=== PATIENT | female | born 1985 | race Caucasian/White ===

== ENCOUNTER 2019-05-07 10:15 | Emergency (ER) | payer MEDICAID, OTHER ==
[2019-05-07] MEDS ORDERED: NORCO 5/325 MG PO ONE (10:45)
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
[2019-05-07] MEDS ORDERED: NORCO 5/325 MG ONE ×2 (10:50→10:53)
[2019-05-07 11:07] VITALS: BP 136/97; PULSE 49; O2SAT 99
== END 2019-05-07 11:10 | disposition home or self-care (01) ==
LOC: ED 10:15
DX: K04.7 Periapical abscess without sinus (principal)
CPT/HCPCS: 99283; A9270-GY

== ENCOUNTER 2021-12-21 19:58 | Emergency (ER) | payer OTHER ==
[2021-12-21] MEDS ORDERED: Compazine 10 MG/2 ML IV ONE (20:10)
[2021-12-21] MEDS ORDERED: TORAdol 30 mg Injection IV ONE (20:10)
[2021-12-21] MEDS ORDERED: BENADRYL 50 MG/ML IV ONE (20:11)
[2021-12-21] MEDS ORDERED: TORAdol 30 mg Injection ONE (20:29)
[2021-12-21] MEDS ORDERED: BENADRYL 50 MG/ML ONE (20:29)
[2021-12-21] MEDS ORDERED: Compazine 10 MG/2 ML ONE (20:29)
[2021-12-21] MEDS ORDERED: Dextrose 5%-1/2NS IV Soln. 500 ML 500 ML IV SCH (20:30)
[2021-12-21] MEDS ORDERED: Dextrose 5%-1/2NS IV Soln. 500 ML 500 ML IV ONE (20:30)
[2021-12-21 20:49] LABS: INFLUENZA A NEGATIVE (NEGATIVE); INFLUENZA B NEGATIVE (NEGATIVE); RESPIRATORY SYNCTIAL VIRUS NEGATIVE (Negative)
[2021-12-21 20:52] LABS: SARS-CoV-2 Xpert Express POSITIVE (NEGATIVE)
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
[2021-12-21 21:59] VITALS: BP 118/67; PULSE 76; O2SAT 98
== END 2021-12-21 21:58 | disposition home or self-care (01) ==
LOC: ED 19:58
DX: U07.1 COVID-19 (principal); R50.9 Fever, unspecified; R11.2 Nausea with vomiting, unspecified; M79.10 Myalgia, unspecified site; R51.9 Headache, unspecified; Z28.310 Unvaccinated for COVID-19
CPT/HCPCS: 0241U; 96360; 96374; 96375; 99284; J1200; J1885